=== PATIENT | female | born 1970 | race Hispanic/Latino ===

== ENCOUNTER 2017-08-05 23:29 | Emergency (ER) | payer SELFPAY ==
[2017-08-06 01:15] VITALS: BP 132/84
--- NOTE | 2017-08-06 03:46 | XRay Report ---
FINAL REPORT EXAM: XR SHOULDER 2+V LT HISTORY: L shoulder/neck pain-no injury. TECHNIQUE: Three radiographs of the left shoulder were obtained. No prior studies are available for comparison. FINDINGS: There is no fracture or dislocation. There is chronic appearing irregularity of the distal left clavicle, with mild marginal spurring. A 5 mm chronic appearing bony ossicle is seen within the left acromioclavicular joint. These findings are likely sequela of prior remote injury, and clinical correlation is recommended. No other discrete osseous abnormality is seen. No significant soft tissue abnormality is identified. If pain persists, MRI examination is suggested for more definitive evaluation. IMPRESSION: 1. No acute fracture or dislocation. 2. Chronic changes seen in the left acromioclavicular joint as described, probably sequela of remote injury.
== END 2017-08-06 04:40 | disposition left against medical advice (07) ==
LOC: ED 23:29
DX: M25.512 Pain in left shoulder (principal); M54.2 Cervicalgia; Z53.21 Procedure and treatment not carried out due to patient leaving prior to being seen by health care provider